=== PATIENT | female | born 1995 | race Caucasian/White ===

== ENCOUNTER 2016-11-29 14:53 | Emergency (ER) | payer OTHER ==
[~2016-11-29] VITALS: Ht 162.6 cm; Wt 75.0 kg
[~2016-11-29 14:53] MED LIST: PREN1CAP7 PO
[2016-11-29 14:54] VITALS: BP 122/63; PULSE 89; RESP 18; TEMP 98.1; O2SAT 100
--- NOTE | 2016-11-29 17:05 | PD ---
HPI Chief Complaint: Related Problem Time Seen by Provider: 16:46 Travel History International Travel<30 days: No Contact w/Intl Traveler<30days: No Traveled to known affect area: No History of Present Illness HPI 21-year-old female complains of pelvic cramping and vaginal bleeding. Patient is 3 para 2. Patient states that about 5 to 6 weeks . Patient stated she was seen by OB clinic yesterday. Patient started having pelvic pain with vaginal bleeding since this morning. Patient denies any headache. Patient denies any chest pain or shortness of breath. Patient denies any nausea vomiting diarrhea. Patient denies any dysuria or frequency. Patient denies any back pain. Patient denies any fever chills. Patient's blood type B+ . PFSH Past Medical History Anxiety: Yes Diminished Hearing: No Gastrointestinal Disorders: Yes (IBS) Sickle Cell Disease: Yes ?: LMP: 10/21/2016 : 2 Para: 1 Miscarriage: 0 : 0 Ovarian Cysts: Yes Past Surgical History Other Surgery: Yes (GANGLION CYST REMOVAL, BRONCHIAL CLEFT REPAIR) Social History Alcohol Use: No Tobacco Use: Yes Substance Use: No Allergies-Medications (Allergen,Severity, Reaction): Coded Allergies: Amoxicillin (Verified Allergy, Intermediate, DIARRHEA, 11/29/16) Cephalosporins (Verified Allergy, Intermediate, MUSCLE STIFFNESS, 11/29/16) Lamictal (Verified Allergy, Intermediate, DAVON ANGELY SYNDROME, 11/29/16 ) Abilify (Verified Allergy, Unknown, MUSCLE STIFFNESS, 11/29/16) Ibuprofen (Verified Adverse Reaction, Intermediate, 11/29/16) "SHARP PAINS IN MY INTESTINES AND IN MY STOMACH" Reported Meds & Prescriptions Reported Meds & Active Scripts Active Citranatal Deal ( W/O Vit A W/ Fe Fumar) 27-1-260 Mg Cap 1 Cap PO DAILY Review of Systems General / Constitutional: No: Fever Eyes: No: Visual changes HENT: No: Headaches Cardiovascular: No: Chest Pain or Discomfort Respiratory: No: Shortness of Breath Gastrointestinal: No: Abdominal Pain Genitourinary: Positive: Pelvic Pain, Vaginal Bleeding, No: Dysuria Musculoskeletal: No: Pain Skin: No Rash Neurologic: No: Weakness Psychiatric: No: Depression Endocrine: No: Polydipsia Hematologic/Lymphatic: No: Easy Bruising Physical Exam Narrative GENERAL: Well-nourished, well-developed patient. SKIN: Warm and dry. HEAD: Normocephalic. EYES: No scleral icterus. No injection or drainage. NECK: Supple, trachea midline. No JVD or lymphadenopathy. CARDIOVASCULAR: Regular rate and rhythm without murmurs, gallops, or rubs. RESPIRATORY: Breath sounds equal bilaterally. No accessory muscle use. GASTROINTESTINAL: Abdomen soft, non-tender, nondistended. MUSCULOSKELETAL: No cyanosis, or edema. BACK: Nontender without obvious deformity. No CVA tenderness. SUCTION WORKER exam: Patient has small amount of blood in the vaginal vault. The cervix long thick and closed. Uterus is enlarged with mild tenderness on palpation. No adnexal mass or tenderness. Data Data Last Documented VS Vital Signs Date Time Temp Pulse Resp B/P Pulse Ox O2 Delivery O2 Flow Rate FiO2 11/29/16 14:54 98.1 89 18 122/63 100 Room Air Orders Beta Hcg (Quant/Titer) (11/29/16 16:59) Complete Blood Count With Diff (11/29/16 16:59) Basic Metabolic Panel (Bmp) (11/29/16 16:59) Us Pelvis (Ques Pr/Ect)W Trans (11/29/16 ) Urinalysis - C+S If Indicated (11/29/16 16:59) Iv Access Insert/Monitor (11/29/16 16:59) MDM Medical Decision Making Medical Screen Exam Complete: Yes Emergency Medical Condition: Yes Differential Diagnosis Differential diagnosis including threatened AB, incomplete AB, completed AB, ectopic . Narrative Course 21-year-old female with pelvic pain and vaginal bleeding. Patient's about 5-6 weeks . Arie Kramer MD Nov 29, 2016 17:05
[2016-11-29 17:27] LABS: AUTOMATED NEUTROPHIL # 5.1 TH/MM3 (1.8-7.7); BASOPHIL % 0.4 % (0.0-2.0); EOSINOPHIL # 0.1 TH/MM3 (0-0.4); EOSINOPHIL % 1.5 % (0.0-4.0); HEMATOCRIT 41.8 % (35.0-46.0); LYMPH % 25.1 % (9.0-44.0); MEAN CELL VOLUME 79.9 FL (80.0-100.0); MEAN CORPUSCULAR HEMOGLOBIN 24.9 PG (27.0-34.0); MEAN CORPUSCULAR HGB CONC 31.2 % (32.0-36.0); MONO % 6.9 % (0.0-8.0); NEUT % 66.1 % (16.0-70.0); PLATELET COUNT 255 TH/MM3 (150-450); RED BLOOD COUNT 5.24 MIL/MM3 (4.00-5.30); RED CELL DISTRIBUTION WIDTH 13.2 % (11.6-17.2); WHITE BLOOD COUNT 7.8 TH/MM3 (4.0-11.0)
[2016-11-29 17:29] LABS: BLOOD, URINE LARGE (NEG); GLUCOSE,URINE NEG (NEG); KETONE, URINE NEG (NEG); NITRITE,URINE NEG (NEG); PH, URINE 7.5 (5.0-8.5); SQUAMOUS EPITHELIAL CELL URINE 1 /hpf (0-5); URINE COLOR YELLOW (YELLW/STRAW)
[2016-11-29 17:35] LABS: HEMO FLAGS AUTO DIFF
--- NOTE | 2016-11-29 17:45 | PD ---
Physical Exam Date Seen by Provider: Nov 29, 2016 Time Seen by Provider: 17:44 Narrative The patient is a 21-year-old female was initially evaluated by Dr. Kramer. Please refer to the initial history, physical, diagnostic evaluation, and treatment modality plan. The patient was signed out of 5:30 PM with ultrasound and laboratory evaluation pending. Data Data Last Documented VS Vital Signs Date Time Temp Pulse Resp B/P Pulse Ox O2 Delivery O2 Flow Rate FiO2 11/29/16 14:54 98.1 89 18 122/63 100 Room Air Orders Beta Hcg (Quant/Titer) (11/29/16 16:59) Complete Blood Count With Diff (11/29/16 16:59) Basic Metabolic Panel (Bmp) (11/29/16 16:59) Us Pelvis (Ques Pr/Ect)W Trans (11/29/16 ) Urinalysis - C+S If Indicated (11/29/16 16:59) Iv Access Insert/Monitor (11/29/16 16:59) Labs Laboratory Tests Test 11/29/16 11/29/16 16:58 17:06 White Blood Count 7.8 TH/MM3 Red Blood Count 5.24 MIL/MM3 Hemoglobin 13.0 GM/DL Hematocrit 41.8 % Mean Corpuscular Volume 79.9 FL Mean Corpuscular Hemoglobin 24.9 PG Mean Corpuscular Hemoglobin 31.2 % Concent Red Cell Distribution Width 13.2 % Platelet Count 255 TH/MM3 Mean Platelet Volume 9.1 FL Neutrophils (%) (Auto) 66.1 % Lymphocytes (%) (Auto) 25.1 % Monocytes (%) (Auto) 6.9 % Eosinophils (%) (Auto) 1.5 % Basophils (%) (Auto) 0.4 % Neutrophils # (Auto) 5.1 TH/MM3 Lymphocytes # (Auto) 2.0 TH/MM3 Monocytes # (Auto) 0.5 TH/MM3 Eosinophils # (Auto) 0.1 TH/MM3 Basophils # (Auto) 0.0 TH/MM3 CBC Comment AUTO DIFF Differential Comment AUTO DIFF CONFIRMED Platelet Estimate NORMAL Platelet Morphology Comment NORMAL Ovalocytes 2+ Keratocytes OCC Sodium Level 142 MEQ/L Potassium Level 4.1 MEQ/L Chloride Level 107 MEQ/L Carbon Dioxide Level 26.9 MEQ/L Anion Gap 8 MEQ/L Blood Urea Nitrogen 10 MG/DL Creatinine 0.90 MG/DL Estimat Glomerular Filtration 78 ML/MIN Rate Random Glucose 90 MG/DL Calcium Level 8.7 MG/DL Human Chorionic Gonadotropin, 141 MIU/ML Quant Urine Color YELLOW Urine Turbidity CLEAR Urine pH 7.5 Urine Specific Moffit 1.022 Urine Protein TRACE mg/dL Urine Glucose (UA) NEG mg/dL Urine Ketones NEG mg/dL Urine Occult Blood LARGE Urine Nitrite NEG Urine Bilirubin NEG Urine Urobilinogen LESS THAN 2.0 MG/DL Urine Leukocyte Esterase NEG Urine RBC 164 /hpf Urine WBC LESS THAN 1 /hpf Urine Squamous Epithelial 1 /hpf Cells Microscopic Urinalysis Comment CULT NOT INDICATED MDM Medical Record Reviewed: Yes Supervised Visit with ROXANN: No Interpretation(s) Laboratory Tests Test 11/29/16 11/29/16 16:58 17:06 White Blood Count 7.8 TH/MM3 Red Blood Count 5.24 MIL/MM3 Hemoglobin 13.0 GM/DL Hematocrit 41.8 % Mean Corpuscular Volume 79.9 FL Mean Corpuscular Hemoglobin 24.9 PG Mean Corpuscular Hemoglobin 31.2 % Concent Red Cell Distribution Width 13.2 % Platelet Count 255 TH/MM3 Mean Platelet Volume 9.1 FL Neutrophils (%) (Auto) 66.1 % Lymphocytes (%) (Auto) 25.1 % Monocytes (%) (Auto) 6.9 % Eosinophils (%) (Auto) 1.5 % Basophils (%) (Auto) 0.4 % Neutrophils # (Auto) 5.1 TH/MM3 Lymphocytes # (Auto) 2.0 TH/MM3 Monocytes # (Auto) 0.5 TH/MM3 Eosinophils # (Auto) 0.1 TH/MM3 Basophils # (Auto) 0.0 TH/MM3 CBC Comment AUTO DIFF Differential Comment AUTO DIFF CONFIRMED Platelet Estimate NORMAL Platelet Morphology Comment NORMAL Ovalocytes 2+ Keratocytes OCC Sodium Level 142 MEQ/L Potassium Level 4.1 MEQ/L Chloride Level 107 MEQ/L Carbon Dioxide Level 26.9 MEQ/L Anion Gap 8 MEQ/L Blood Urea Nitrogen 10 MG/DL Creatinine 0.90 MG/DL Estimat Glomerular Filtration 78 ML/MIN Rate Random Glucose 90 MG/DL Calcium Level 8.7 MG/DL Human Chorionic Gonadotropin, 141 MIU/ML Quant Urine Color YELLOW Urine Turbidity CLEAR Urine pH 7.5 Urine Specific Moffit 1.022 Urine Protein TRACE mg/dL Urine Glucose (UA) NEG mg/dL Urine Ketones NEG mg/dL Urine Occult Blood LARGE Urine Nitrite NEG Urine Bilirubin NEG Urine Urobilinogen LESS THAN 2.0 MG/DL Urine Leukocyte Esterase NEG Urine RBC 164 /hpf Urine WBC LESS THAN 1 /hpf Urine Squamous Epithelial 1 /hpf Cells Microscopic Urinalysis Comment CULT NOT INDICATED Differential Diagnosis Differential diagnosis includes , threatened AB, incomplete AB, ectopic , UTI, PID, cervicitis. Narrative Course The patient was initially evaluated by the previous physician, Dr. Kramer. Please refer to the initial history, physical, diagnostic evaluation, and treatment modality plan. The patient was signed out at 5:30 PM with ultrasound and BHCG pending. Dr. Kramer performed the pelvic exam. Beta hCG was 141. UA reveals RBCs. Ultrasound came to our for pod room 12 to perform an ultrasound, however, the patient was not present at that time, 7:45 PM. The bathrooms in the hallways were checked, we are unable to locate the patient, the patient left without completing treatment. Additional Instruction: AWOL Disposition: 07 AGAINST MEDICAL ADVICE (left without completing treatment, a wall) Condition: Stable Antwan Carpenter MD Nov 29, 2016 17:45
[2016-11-29 17:53] LABS: COMMENT (UR) CULT NOT INDICATED; CULTURE IF INDICATED CULT NOT INDICATED
[2016-11-29 18:46] LABS: KERATOCYTES OCC (NORMAL); OVALOCYTES 2+ (NORMAL)
[2016-11-29 18:47] LABS: PLATELET ESTIMATE SMEAR NORMAL (NORMAL); PLATELET MORPHOLOGY NORMAL (NORMAL); SCAN/DIFF AUTO DIFF CONFIRMED
[2016-11-29 19:36] LABS: BICARBONATE 26.9 MEQ/L (21.0-32.0)
[2016-11-29 19:37] LABS: POTASSIUM 4.1 MEQ/L (3.5-5.1)
== END 2016-11-29 21:32 | disposition left against medical advice (07) ==
LOC: NEPA 14:53
DX: O46.91 Antepartum hemorrhage, unspecified, first trimester (principal); O26.891 Other specified pregnancy related conditions, first trimester; R10.2 Pelvic and perineal pain; Z53.20 Procedure and treatment not carried out because of patient's decision for unspecified reasons; Z72.0 Tobacco use; Z86.59 Personal history of other mental and behavioral disorders; Z87.19 Personal history of other diseases of the digestive system; Z86.2 Personal history of diseases of the blood and blood-forming organs and certain disorders involving the immune mechanism; Z3A.01 Less than 8 weeks gestation of pregnancy
CPT/HCPCS: 80048; 81001; 84702; 85025; 99284